=== PATIENT | male | born 1990 | race Two or more races ===

== ENCOUNTER 2020-02-13 20:54 | Emergency (ER) | payer SELFPAY ==
[~2020-02-13] VITALS: Ht 165.1 cm; Wt 77.1 kg
[2020-02-13 21:09] VITALS: BP 123/73
[2020-02-14] MEDS ORDERED: cefTRIAXone SOD 1,000 MG VL IM ONE (00:45)
[2020-02-14] MEDS ORDERED: KETOROLAC TROMETH 60MG/2ML VIAL IM ONE (00:45)
== END 2020-02-14 01:05 | disposition home or self-care (01) ==
LOC: ER 20:54
DX: L03.113 Cellulitis of right upper limb (principal)
CPT/HCPCS: 73130; 96372; 99284; J0696; J1885